=== PATIENT | female | born 1980 | race Caucasian/White ===

== ENCOUNTER 2017-09-27 18:54 | Emergency (ER) | payer OTHER, MEDICAID ==
[2017-09-27 19:56] VITALS: BP 144/86; PULSE 75; RESP 16; TEMP 98; O2SAT 100
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
--- NOTE | 2017-09-28 08:15 | RAD ---
PROCEDURE: Cervical Spine Radiographs. HISTORY: Pain. COMPARISON: None. FINDINGS: BONES: No cervical spine fracture or subluxation is identified. The odontoid and spinous processes are intact. There is anatomic alignment of the C1/2 lateral masses. DISC SPACES: Disc space heights are preserved. SOFT TISSUES: There is no prevertebral soft tissue swelling OTHER FINDINGS: Visualized portions of the lung apices are clear. IMPRESSION: No cervical spine fracture or subluxation identified.
== END 2017-09-27 21:59 | disposition home or self-care (01) ==
LOC: C.ER 18:54
DX: S13.4XXA Sprain of ligaments of cervical spine, initial encounter (principal); V49.49XA Driver injured in collision with other motor vehicles in traffic accident, initial encounter; Y92.410 Unspecified street and highway as the place of occurrence of the external cause
CPT/HCPCS: 71046; 72040; 96372; 99284; J1885

== ENCOUNTER 2017-11-08 13:48 | Emergency (ER) | payer MEDICAID, OTHER ==
--- NOTE | 2017-11-08 14:52 | C.PDOC ---
History Of Present Illness Patient presents to ED c/o swelling, mild pain and itching around left eye/ eyelid x 3-4 days. Patient is unsure if she was bit by insect or not. She denies fever, eye discharge, pain with eye movement, visual changes, headache, dizziness. Time Seen by Provider: 11/08/17 13:59 Chief Complaint (Nursing): Eye Problem History Per: Patient History/Exam Limitations: no limitations Onset/Duration Of Symptoms: Days Current Symptoms Are (Timing): Still Present Severity: Mild Quality: "Pain" Associated Symptoms: Pain, Itching. denies: Decreased Vision, FB Sensation, Discharge From Eye Past Medical History Reviewed: Historical Data, Nursing Documentation, Vital Signs Vital Signs: Last Vital Signs Temp 98.3 F 11/08/17 15:16 Pulse 62 11/08/17 15:16 Resp 18 11/08/17 15:16 BP 126/89 11/08/17 15:16 Pulse Ox 99 11/08/17 15:16 - Medical History PMH: No Chronic Diseases Family History: States: No Known Family Hx - Social History Hx Tobacco Use: Yes Hx Alcohol Use: No Hx Substance Use: No - Immunization History Hx Tetanus Toxoid Vaccination: No Hx Influenza Vaccination: No Hx Pneumococcal Vaccination: No Review Of Systems Constitutional: Negative for: Fever, Chills Eyes: Positive for: Other (mild pain and itching around left eye/eyelid) ENT: Negative for: Nose Congestion, Throat Pain Respiratory: Negative for: Cough Skin: Negative for: Rash Neurological: Negative for: Headache, Dizziness Physical Exam - Physical Exam Appears: Well, Non-toxic, No Acute Distress Skin: Other (mild left periorbital erythema and swelling ) Head: Atraumatic, Normacephalic Eye(s): bilateral: Normal Inspection, PERRL, EOMI (no pain with EOM movement ) Oral Mucosa: Moist Cardiovascular: Rhythm Regular Respiratory: Normal Breath Sounds, No Rales, No Rhonchi, No Wheezing Neurological/Psych: Oriented x3 ED Course And Treatment O2 Sat by Pulse Oximetry: 99 (RA) Pulse Ox Interpretation: Normal Progress Note: Suspect periorbital cellulitis vs allergic reaction. Patient given PO Benadryl + Clindamycin, and Rxs for same given. Patient instructed to follow up with PMD/clinic in 1-2 days, and she understands she should return to ED if symptoms worsen. Disposition Counseled Patient/Family Regarding: Diagnosis, Need For Followup, Rx Given - Disposition Referrals: Kanu Tee [Staff Provider] - [facility] [Outside] Disposition: HOME/ ROUTINE Disposition Time: 14:50 Condition: STABLE Additional Instructions: FOLLOW UP WITH YOUR DOCTOR/CLINIC IN 1-2 DAYS USE MEDICATIONS DIRECTED RETURN TO ER IF SYMPTOMS WORSEN Prescriptions: Clindamycin [Cleocin] 300 mg PO TID #21 cap DiphenhydrAMINE [Benadryl] 25 mg PO Q6 PRN #20 cap PRN Reason: Itching / Pruritus Forms: [facility] (Bulgarian) Print Language: TAJIK - Clinical Impression Clinical Impression: Periorbital cellulitis of left eye
[2017-11-08 15:18] VITALS: BP 126/89; PULSE 62; RESP 18; TEMP 98.3; O2SAT 99
== END 2017-11-08 15:18 | disposition home or self-care (01) ==
LOC: C.ER 13:48
DX: L03.213 Periorbital cellulitis (principal)

== ENCOUNTER 2018-02-03 14:27 | Emergency (ER) | payer MEDICAID ==
[2018-02-03 14:36] VITALS: RESP 18
[2018-02-03] MEDS ORDERED: Sodium Chloride 0.9% 1,000 ML IV ONE (15:09)
[2018-02-03 15:29] LABS: BASO % 0.3 % (0.0-2.0); EOS # 0.1 K/uL (0.0-0.7); HEMOGLOBIN 13.1 g/dL (11.0-16.0); LYMPH # 2.2 K/uL (1.0-4.3); LYMPH % 26.9 % (20.0-40.0); MEAN CELL VOLUME 86.6 fL (81.0-99.0); MEAN CORPUSCULAR HEMOGLOBIN 29.9 pg (27.0-31.0); MEAN CORPUSCULAR HGB CONC 34.6 g/dL (33.0-37.0); MEAN PLATELET VOLUME 7.5 fL (7.2-11.7); MONO # 0.9 K/uL (0.0-0.8); NEUT % 60.8 % (50.0-75.0); RBC 4.37 Mil/uL (3.80-5.20); WHITE BLOOD COUNT 8.2 K/uL (4.8-10.8)
--- NOTE | 2018-02-03 15:32 | C.PDOC ---
History Of Present Illness 37 year old female presents to ED complaining of nausea, vomiting, and watery diarrhea since last night. She denies fever/chills, abdominal pain, dysuria/hematuria, vaginal discharge/unusual bleeding, sick contacts, unusual food intake. Time Seen by Provider: 02/03/18 14:39 Chief Complaint (Nursing): Abdominal Pain History Per: Patient History/Exam Limitations: no limitations Onset/Duration Of Symptoms: Days (1) Current Symptoms Are (Timing): Still Present Severity: Mild Associated Symptoms: Nausea, Vomiting, Diarrhea Past Medical History Reviewed: Historical Data, Nursing Documentation, Vital Signs Vital Signs: Last Vital Signs Temp 98.6 F 02/03/18 16:41 Pulse 84 02/03/18 16:41 Resp 18 02/03/18 16:41 BP 118/78 02/03/18 16:41 Pulse Ox 99 02/03/18 16:41 - Medical History PMH: No Chronic Diseases Surgical History: No Surg Hx Family History: States: No Known Family Hx - Social History Hx Tobacco Use: Yes Hx Alcohol Use: Yes Hx Substance Use: No - Immunization History Hx Tetanus Toxoid Vaccination: No Hx Influenza Vaccination: No Hx Pneumococcal Vaccination: No Review Of Systems Constitutional: Negative for: Fever, Chills Gastrointestinal: Positive for: Nausea, Vomiting, Diarrhea (Watery). Negative for: Abdominal Pain Genitourinary: Negative for: Dysuria, Hematuria, Vaginal Discharge, Vaginal Bleeding Skin: Negative for: Rash Physical Exam - Physical Exam Appears: Well, Non-toxic, No Acute Distress Skin: Normal Color, Warm, Dry Eye(s): bilateral: Normal Inspection Oral Mucosa: Moist Neck: Supple Cardiovascular: Rhythm Regular Respiratory: Normal Breath Sounds, No Rales, No Rhonchi, No Wheezing Gastrointestinal/Abdominal: Normal Exam, Bowel Sounds, Soft, No Tenderness Back: Normal Inspection, No CVA Tenderness Neurological/Psych: Oriented x3 ED Course And Treatment - Laboratory Results Result Diagrams: 02/03/18 15:25 02/03/18 15:25 O2 Sat by Pulse Oximetry: 98 (RA) Pulse Ox Interpretation: Normal Progress Note: Blood work, UA, Upreg ordered and reviewed. Patient given IV NS bolus. Reevaluation Time: 17:30 Reassessment Condition: Improved (Patient reassessed, is resting comfortably and states she feels better. On exam, abdomen is soft and nontender/nondistended. Upreg (+), patient made aware she is . Rx for vitamins given, and patient instructed to follow up with vaudeville actor within 1 week. N/V/D symptoms likely viral in nature. Patient understands she should return to ED if symptoms worsen.) Disposition Counseled Patient/Family Regarding: Studies Performed, Diagnosis, Need For Followup, Rx Given - Disposition Referrals: [place] [facility] [Outside] [facility] [Outside] [facility] [Outside] Disposition: HOME/ ROUTINE Disposition Time: 17:30 Condition: STABLE Additional Instructions: FOLLOW UP WITH POLICY SERVICES REPRESENTATIVE WITHIN 1 WEEK USE VITAMINS TYLNEOL ONLY FOR PAIN RETURN TO ER IF YOU HAVE ANY CONCERNING SYMPTOMS DRINK PLENTY OF FLUIDS Prescriptions: 21/Iron Fu/Folic Acid [ Complete Caplet] 1 each PO DAILY #30 tablet Instructions: Symptoms Forms: [facility] (Martiniquais) Print Language: BHUTANESE - Clinical Impression Clinical Impression: Nausea, Vomiting, Diarrhea, - Scribe Statement The provider has reviewed the documentation as recorded by the Tiffany Chaconed Provider Attestation: All medical record entries made by the Tiffany were at my direction and personally dictated by me. I have reviewed the chart and agree that the record accurately reflects my personal performance of the history, physical exam, medical decision making, and the department course for this patient. I have also personally directed, reviewed, and agree with the discharge instructions and disposition.
[2018-02-03 15:36] LABS: SQUAMOUS EPITHIAL 27 /hpf (0-5); URINE BACTERIA OCC (<OCC); URINE BILIRUBIN NEGATIVE (NEGATIVE); URINE BLOOD 2+ (NEGATIVE); URINE CLARITY Hazy (Clear); URINE COLOR Amber (YELLOW); URINE GLUCOSE (UA) NORMAL (Normal); URINE LEUKOCYTE ESTERASE 3+ Leu/uL (Negative); URINE PROTEIN 3+ mg/dL (NEGATIVE); URINE UROBILINOGEN NORMAL mg/dL (0.2-1.0)
[2018-02-03 15:40] LABS: HCG,QUALITATIVE URINE POSITIVE (NEGATIVE)
[2018-02-03 15:43] LABS: ALB/GLOB RATIO 1.2 (1.0-2.1); ALBUMIN 3.4 g/dL (3.5-5.0); ALT/SGPT 22 U/L (9-52); AST/SGOT 12 U/L (14-36); BLOOD UREA NITROGEN 14 mg/dL (7-17); GFR NON-AFRICAN AMERICAN > 60; LIPASE 44 U/L (23-300)
[2018-02-03 16:42] VITALS: BP 118/78; PULSE 84; TEMP 98.6
[2018-02-14 07:30] VITALS: O2SAT 98
== END 2018-02-03 17:43 | disposition home or self-care (01) ==
LOC: C.ER 14:27
DX: O21.9 Vomiting of pregnancy, unspecified (principal); R19.7 Diarrhea, unspecified; Z3A.00 Weeks of gestation of pregnancy not specified
CPT/HCPCS: 80053; 81001; 83690; 84702; 84703; 85025; 96360; 99284; J7030

== ENCOUNTER 2018-02-14 14:25 | Emergency (ER) | payer MEDICAID ==
[2018-02-14 14:36] VITALS: RESP 16; TEMP 97.3
[2018-02-14 15:26] LABS: BASO % 0.1 % (0.0-2.0); HEMOGLOBIN 13.5 g/dL (11.0-16.0); LYMPH # 1.6 K/uL (1.0-4.3); LYMPH % 11.8 % (20.0-40.0); MEAN CELL VOLUME 86.7 fL (81.0-99.0); MEAN CORPUSCULAR HEMOGLOBIN 29.4 pg (27.0-31.0); MEAN CORPUSCULAR HGB CONC 33.9 g/dL (33.0-37.0); MEAN PLATELET VOLUME 7.8 fL (7.2-11.7); MONO # 0.6 K/uL (0.0-0.8); MONO % 4.6 % (0.0-10.0); NEUT # 11.3 K/uL (1.8-7.0); NEUT % 83.5 % (50.0-75.0); RBC 4.59 Mil/uL (3.80-5.20); RED CELL DISTRIBUTION WIDTH 14.1 % (11.5-14.5)
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
[2018-02-14 15:27] LABS: WHITE BLOOD COUNT 13.5 K/uL (4.8-10.8)
[2018-02-14 15:47] LABS: SQUAMOUS EPITHIAL 2 /hpf (0-5); URINE BACTERIA RARE (<OCC); URINE BILIRUBIN NEGATIVE (NEGATIVE); URINE BLOOD 3+ (NEGATIVE); URINE CLARITY Clear (Clear); URINE COLOR Straw (YELLOW); URINE GLUCOSE (UA) NORMAL (Normal); URINE LEUKOCYTE ESTERASE TRACE Leu/uL (Negative); URINE PROTEIN 1+ mg/dL (NEGATIVE); URINE UROBILINOGEN NORMAL mg/dL (0.2-1.0)
[2018-02-14 15:50] LABS: ALB/GLOB RATIO 1.3 (1.0-2.1); ALBUMIN 4.2 g/dL (3.5-5.0); ALT/SGPT 28 U/L (9-52); AST/SGOT 28 U/L (14-36); BLOOD UREA NITROGEN 9 mg/dL (7-17); CALCIUM 9.1 mg/dl (8.6-10.4); GFR NON-AFRICAN AMERICAN > 60
[2018-02-14 19:05] VITALS: BP 136/75; PULSE 75; O2SAT 98
--- NOTE | 2018-02-15 12:08 | US ---
Date of service: 02/14/2018 PROCEDURE: First trimester ultrasound Beta HCG 3984.80 units. HISTORY: Left-sided pain and spotting. COMPARISON: None TECHNIQUE: Standard protocol for this study/examination. FINDINGS: LMP: 01/09/2018. Prior examinations from the current : None TECHNIQUE: Real-time 2D imaging, duplex and color Doppler. FINDINGS: No pole identified. Gestational age Out of range. Below threshold for calculation of reliable gestational age. based on gestational sac measurement 0.31 cm Gestational age derived from LMP: 5 weeks 1 day MARJAN based on LMP: 10/16/2018 MARJAN based on biometry: Out of range. Below threshold for calculation of reliable gestational age. Gestational concordance cannot be established Yolk sac not identified Cervix: No Cervical abnormalities: Negative examination for cervical dilatation or effacement. Closed cervix measuring 3.28 cm Subchorionic hemorrhage: None UTERUS: 4.9 x 8.5 x 5.5 cm. Multiple (3) uterine fibroids. Septated uterus. Endometrial thickness 13 mm. Fundal sub serosal fibroid 1.6 x 2.1 cm. Fundal intramural fibroid 9 x 13 mm. Fibroid measuring 1.2 x 1 cm in the body of the uterus, intramural type. ADNEXA: Right: 2.2 x 3.7 x 5.8 cm. Simple cyst 2.2 x 3.1 x 4.1 cm. Normal Doppler arterial waveform documented. Left: 2.8 x 3.3 x 3.4 cm. Tubular structure 4 x 1.9 x 2.1 cm. Ectopic gestation should be considered. Tubo-ovarian abscess can also assume this appearance. Simple cyst 1.8 x 2.1 x 2.4 cm normal Doppler arterial waveform documented Fluid in the cul-de-sac: None IMPRESSION: Possible early intrauterine gestation based on small sac. Decidual reaction can also assume this appearance. This should be contemplated given the tubular structure in the left adnexa raise the possibility ectopic gestation. Multiple uterine fibroids. Concordant results (preliminary interpretation) provided by [facility]. Procedure Completed: 17:21. Preliminary Report: Dictated and Authenticated: 19:16. Final Interpretation: 12:06.
== END 2018-02-14 19:05 | disposition home or self-care (01) ==
LOC: C.ER 14:25
DX: O20.0 Threatened abortion (principal); Z3A.01 Less than 8 weeks gestation of pregnancy

== ENCOUNTER 2018-02-16 06:40 | Emergency (ER) | payer MEDICAID ==
[2018-02-16 07:01] VITALS: O2SAT 100
[2018-02-16] MEDS ORDERED: Sodium Chloride 0.9% 1,000 ML IV STA (07:44)
[2018-02-16 08:23] LABS: BASO # 0.1 K/uL (0.0-0.2); BASO % 0.8 % (0.0-2.0); EOS % 0.3 % (0.0-4.0); HEMOGLOBIN 13.1 g/dL (11.0-16.0); LYMPH # 1.9 K/uL (1.0-4.3); LYMPH % 19.8 % (20.0-40.0); MEAN CELL VOLUME 86.8 fL (81.0-99.0); MEAN CORPUSCULAR HGB CONC 34.5 g/dL (33.0-37.0); MEAN PLATELET VOLUME 7.7 fL (7.2-11.7); MONO # 0.7 K/uL (0.0-0.8); MONO % 6.9 % (0.0-10.0); NEUT # 6.9 K/uL (1.8-7.0); NEUT % 72.2 % (50.0-75.0); RBC 4.36 Mil/uL (3.80-5.20); RED CELL DISTRIBUTION WIDTH 14.1 % (11.5-14.5); WHITE BLOOD COUNT 9.6 K/uL (4.8-10.8)
[2018-02-16 08:27] LABS: URINE BILIRUBIN NEGATIVE (NEGATIVE); URINE BLOOD 3+ (NEGATIVE); URINE COLOR Straw (YELLOW); URINE GLUCOSE (UA) NORMAL (Normal); URINE PROTEIN 1+ mg/dL (NEGATIVE); URINE UROBILINOGEN NORMAL mg/dL (0.2-1.0)
[2018-02-16 08:28] LABS: SQUAMOUS EPITHIAL 4 /hpf (0-5); URINE BACTERIA RARE (<OCC); URINE LEUKOCYTE ESTERASE NEG Leu/uL (Negative)
[2018-02-16 08:29] LABS: HCG,QUALITATIVE URINE POSITIVE (NEGATIVE)
[2018-02-16 08:39] LABS: ALB/GLOB RATIO 1.4 (1.0-2.1); ALT/SGPT 26 U/L (9-52); AST/SGOT 16 U/L (14-36); BLOOD UREA NITROGEN 9 mg/dL (7-17); GFR NON-AFRICAN AMERICAN > 60
[2018-02-16 08:54] LABS: URINE CLARITY SLHAZY (Clear)
--- NOTE | 2018-02-16 10:24 | US ---
Date of service: 02/16/2018 HISTORY: , vaginal bleeding. Last menstrual period is 01/09/2018 suggesting an estimated gestational age of 8 weeks 3 days. COMPARISON: None available. TECHNIQUE: Transvaginal pelvic ultrasound was performed with longitudinal and transverse images submitted for interpretation. FINDINGS: UTERUS: Measures 8.8 x 5.1 x 6.1 cm. Heterogeneous echotexture seen throughout the myometrium with multiple small fibroids identified. A mid left lateral subserosal fibroid measures 1.5 x 1.1 x 1.2 cm. A high fundal, subserosal posterior uterine myoma measures 2.0 x 1.5 x 1.8 cm with both of these fibroids hypoechoic in echotexture predominantly. A 3rd fibroid is identified at the mid posterior fundus mural in position measure 1.5 x 1.0 x 1.3 cm. A small cystic structure seen within the endometrium or the endometrial cavity measuring 0.3 cm average diameter suggesting an estimated gestational age of less than 5 weeks if this is a gestational sac. Clearly, no pole yolk sac is identifiable. ENDOMETRIUM: Measures 13.9 mm in diameter. Inhomogeneous echotexture diffusely noted. See discussion above. CERVIX: No cervical abnormality identified. RIGHT OVARY: Measures 2.7 x 1.7 x 3.2 cm. No solid mass. Normal flow. Parapelvic cysts identified simple in character measuring 4.1 x 2.4 x 3.2 cm. LEFT OVARY: Measures 4.1 x 2.9 x 3.7 cm. No solid mass. Normal flow. A 2.2 x 1.7 x 1.9 cm complex cyst is seen with a prominent peripheral rind which appears echogenic. This may represent a corpus luteum cyst. FREE FLUID: No significant free fluid noted. OTHER FINDINGS: Ectopic gestation not demonstrated but is not completely excluded either. IMPRESSION: Potential early intrauterine gestation in the endometrial cavity. No yolk sac or pole yet proven. Possible corpus luteum cyst left ovary. No ectopic gestation clearly identified however this is not excluded and clinical correlation is recommended including serial beta HCG analysis and possible week follow-up transvaginal pelvic ultrasound. Three uterine fibroids identified as discussed above. Prominent endometrium.
[2018-02-16 11:29] VITALS: BP 123/79; PULSE 88; RESP 16; TEMP 98.4
--- NOTE | 2018-02-16 11:32 | C.PDOC ---
Time Seen by Provider: 02/16/18 07:15 Chief Complaint (Nursing): Female Genitourinary Past Medical History Vital Signs: Last Vital Signs Temp 98.4 F 02/16/18 11:28 Pulse 88 02/16/18 11:28 Resp 16 02/16/18 11:28 BP 123/79 02/16/18 11:28 Pulse Ox 100 02/16/18 11:28 - Medical History PMH: Anxiety - Social History Hx Tobacco Use: Yes Hx Alcohol Use: No Hx Substance Use: No - Immunization History Hx Tetanus Toxoid Vaccination: No Hx Influenza Vaccination: No Hx Pneumococcal Vaccination: No ED Course And Treatment - Laboratory Results Result Diagrams: 02/16/18 08:15 02/16/18 08:15 O2 Sat by Pulse Oximetry: 100 Disposition - Disposition Referrals: Jacqueline Rodrigues APN [Primary Care Provider] - Disposition: HOME/ ROUTINE Disposition Time: 11:29 Condition: STABLE Additional Instructions: Follow up with OBGYN within 1-2 days. Return to ED in 2-3 days to repeat blood work and pelvic US. Return to ED immediately if feel worse. Instructions: Bleeding With (DC) - Clinical Impression Clinical Impression: Vaginal bleeding in patient at less than 20 weeks gestation
--- NOTE | 2018-02-16 11:35 | C.PDOC ---
History Of Present Illness 37 y/o female, 5 weeks , , presents to ED for evaluation of vaginal spotting that started yesterday. Pt states she noticed blood when wiping today. Denies abdominal pain, n/v/d, constipation, back pain, fever, or chills. LMP: 01/09/18. Time Seen by Provider: 02/16/18 07:15 Chief Complaint (Nursing): Female Genitourinary History Per: Patient History/Exam Limitations: no limitations Onset/Duration Of Symptoms: Days Current Symptoms Are (Timing): Still Present Alleviating Factors: None Recent travel outside of the [place]: No Additional History Per: Patient Last Menstral Period: 01/09/18 : 1 Para: 0 Past Medical History Reviewed: Historical Data, Nursing Documentation, Vital Signs Vital Signs: Last Vital Signs Temp 98.4 F 02/16/18 11:28 Pulse 88 02/16/18 11:28 Resp 16 02/16/18 11:28 BP 123/79 02/16/18 11:28 Pulse Ox 100 02/16/18 11:28 - Medical History PMH: Anxiety Family History: States: Unknown Family Hx - Social History Hx Tobacco Use: Yes Hx Alcohol Use: No Hx Substance Use: No - Immunization History Hx Tetanus Toxoid Vaccination: No Hx Influenza Vaccination: No Hx Pneumococcal Vaccination: No Review Of Systems Except As Marked, All Systems Reviewed And Found Negative. Constitutional: Negative for: Fever, Chills Gastrointestinal: Negative for: Nausea, Vomiting, Abdominal Pain, Diarrhea, Constipation Genitourinary: Positive for: Vaginal Bleeding (spotting). Negative for: Dysuria, Frequency Musculoskeletal: Negative for: Back Pain Neurological: Negative for: Headache, Dizziness Physical Exam - Physical Exam Appears: Non-toxic, No Acute Distress Skin: Normal Color, Warm, Dry Head: Atraumatic, Normacephalic Eye(s): bilateral: Normal Inspection Oral Mucosa: Moist Neck: Normal ROM, Supple Cardiovascular: Rhythm Regular, No Murmur Respiratory: Normal Breath Sounds, No Rales, No Rhonchi, No Wheezing Gastrointestinal/Abdominal: Soft, No Tenderness, No Guarding, No Rebound Back: No CVA Tenderness Extremity: Normal ROM Neurological/Psych: Oriented x3, Normal Speech ED Course And Treatment - Laboratory Results Result Diagrams: 02/16/18 08:15 02/16/18 08:15 O2 Sat by Pulse Oximetry: 100 (RA) Pulse Ox Interpretation: Normal - CT Scan/US OB transvag US Other Rad Studies (CT/US): Read By Radiologist, Radiology Report Reviewed CT/US Interpretation: Accession No. : [id number]. Patient Name / ID : YUNIOR COX / [id number]. Exam Date : 02/16/2018 09:18:09 ( Approved ). Study Comment : Sex / Age : F / [id number]. Creator : Cam Arevalo MD. Dictator : Cam Arevalo MD. Residential Builder : Block Press Operator : Cam Arevalo MD. Approver2 : Report Date : 02/16/2018 10:23:18. My Comment : . Date of service: 02/16/2018. HISTORY: , vaginal bleeding. Last menstrual period is 01/09/2018 suggesting an estimated gestational age of 8 weeks 3 days. COMPARISON: None available. TECHNIQUE: Transvaginal pelvic ultrasound was performed with longitudinal and transverse images submitted for interpretation. FINDINGS: UTERUS: Measures 8.8 x 5.1 x 6.1 cm. Heterogeneous echotexture seen throughout the myometrium with multiple small fibroids identified. A mid left lateral subserosal fibroid measures 1.5 x 1.1 x 1.2 cm. A high fundal, subserosal posterior uterine myoma measures 2.0 x 1.5 x 1.8 cm with both of these fibroids hypoechoic in echotexture predominantly. A 3rd fibroid is identified at the mid posterior fundus mural in position measure 1.5 x 1.0 x 1.3 cm. A small cystic structure seen within the endometrium or the endometrial cavity measuring 0.3 cm average diameter suggesting an estimated gestational age of less than 5 weeks if this is a gestational sac. Clearly, no pole yolk sac is identifiable. ENDOMETRIUM: Measures 13.9 mm in diameter. Inhomogeneous echotexture diffusely noted. See discussion above. CERVIX: No cervical abnormality identified. RIGHT OVARY: Measures 2.7 x 1.7 x 3.2 cm. No solid mass. Normal flow. Parapelvic cysts identified simple in character measuring 4.1 x 2.4 x 3.2 cm. LEFT OVARY: Measures 4.1 x 2.9 x 3.7 cm. No solid mass. Normal flow. A 2.2 x 1.7 x 1.9 cm complex cyst is seen with a prominent peripheral rind which appears echogenic. This may represent a corpus luteum cyst. FREE FLUID: No significant free fluid noted. OTHER FINDINGS: Ectopic gestation not demonstrated but is not completely excluded either. IMPRESSION: Potential ea rly intrauterine gestation in the endometrial cavity. No yolk sac or pole yet proven. Possible corpus luteum cyst left ovary. No ectopic gestation clearly identified however this is not excluded and clinical correlation is recommended including serial beta HCG analysis and possible week follow-up transvaginal pelvic ultrasound. Three uterine fibroids identified as discussed above. Prominent endometrium. Medical Decision Making Medical Decision Making: Plan: Blood work Urinalysis OB transvag US IV fluids Pt is being discharged home with instructions to return to ED in 2-3 days for repeat Beta HCG and ultrasound. Disposition - Disposition Referrals: Jacqueline Rodrigues APN [Primary Care Provider] - Disposition: HOME/ ROUTINE Disposition Time: 11:36 Condition: STABLE Additional Instructions: Follow up with OBGYN within 1-2 days. Return to ED in 2-3 days to repeat blood w ork and pelvic US. Return to ED immediately if feel worse. Instructions: Bleeding With (DC) Forms: [employer] (Surinamese) - Clinical Impression Clinical Impression: Vaginal bleeding in patient at less than 20 weeks gestation - PA / REVIEW MANAGER / Resident Statement MD/DO has reviewed & agrees with the documentation as recorded. - Scribe Statement The provider has reviewed the documentation as recorded by the Scribe JOCELYN All medical record entries made by the Scribe were at my direction and personally dictated by me. I have reviewed the chart and agree that the record accurately reflects my personal performance of the history, physical exam, medical decision making, and the department course for this patient. I have also personally directed, reviewed, and agree with the discharge instructions and disposition.
== END 2018-02-16 11:48 | disposition home or self-care (01) ==
LOC: SUPCPDRO 06:40 → C.ER 06:40
DX: O46.91 Antepartum hemorrhage, unspecified, first trimester (principal); Z3A.00 Weeks of gestation of pregnancy not specified
CPT/HCPCS: 76817; 80053; 81001; 84702; 84703; 85025; 86850; 86900; 96360; 99285; J1644; J7030

== ENCOUNTER 2018-09-25 13:31 | Emergency (ER) | payer MEDICAID, OTHER ==
[2018-09-25 13:52] VITALS: TEMP 98
--- NOTE | 2018-09-25 14:11 | C.PDOC ---
History Of Present Illness 37 year old female presents to ED with complaint of right ear pain for the past week. Patient also complains of bilateral groin rash for the past day with +itching. Patient denies fever, discharge, or tingling. R EAR PAIN X 1 WEEK. NO FEVER, DC, OTHER ASSOC SX ALSO CO B/L GROIN RASH X 1 DAY. +ITCH. EXAM NAD HEENT +IMPACTED WAX R EAR; CANAL WNL. L TM WNL SKIN +JOCK ITCH B/L INNER THIGH Time Seen by Provider: 09/25/18 13:56 Chief Complaint (Nursing): ENT Problem History Per: Patient History/Exam Limitations: no limitations Onset/Duration Of Symptoms: Days (7) Current Symptoms Are (Timing): Still Present Past Medical History Reviewed: Historical Data, Nursing Documentation, Vital Signs Vital Signs: Last Vital Signs Temp 98.0 F 09/25/18 13:49 Pulse 74 09/25/18 13:49 Resp 20 09/25/18 13:49 BP 153/93 H 09/25/18 13:49 Pulse Ox 100 09/25/18 13:49 Primary Care Provider: Manpreet Duarte Surg - Medical History PMH: Anxiety Surgical History: No Surg Hx Family History: States: Unknown Family Hx - Social History Hx Tobacco Use: Yes Hx Alcohol Use: No Hx Substance Use: No - Immunization History Hx Tetanus Toxoid Vaccination: No Hx Influenza Vaccination: No Hx Pneumococcal Vaccination: No Review Of Systems Except As Marked, All Systems Reviewed And Found Negative. ENT: Positive for: Ear Pain (right ear pain ) Skin: Positive for: Rash (pruritic bilateral groin rash) Physical Exam - Physical Exam Appears: Well, Non-toxic, No Acute Distress Skin: Normal Color, Warm, Dry, Other (+jock itch to the bilateral inner thigh) Head: Atraumatic, Normacephalic Eye(s): bilateral: Normal Inspection, PERRL, EOMI Ear(s): Left: Normal, Right: Other (impacted wax, canal within normal limits) Nose: Normal Oral Mucosa: Moist Throat: Normal, No Erythema, No Exudate Neck: Normal ROM, Supple Chest: Symmetrical, No Deformity Cardiovascular: Rhythm Regular, No Murmur Respiratory: No Accessory Muscle Use, No Rales, No Rhonchi, No Wheezing, Other (NARD) Gastrointestinal/Abdominal: Soft, No Tenderness Extremity: Normal ROM, Capillary Refill (<2 seconds) Extremity: Bilateral: Atraumatic, Normal ROM Pulses: Left Radial: Normal, Right Radial: Normal Neurological/Psych: Oriented x3, Normal Speech, Normal Cognition ED Course And Treatment O2 Sat by Pulse Oximetry: 100 (in RA) Pulse Ox Interpretation: Normal Medical Decision Making Medical Decision Making: MDM Patient prescribed debrox and lotrimin cream Discussed plan with patient who expresses understanding. All questions answered and there is agreement with the plan to discharge home with instructions. Patient stable for discharge. Return if symptoms persist or worsen. Disposition Counseled Patient/Family Regarding: Diagnosis, Need For Followup, Rx Given - Disposition Referrals: [facility] [Outside] [facility] [Outside] Disposition: HOME/ ROUTINE Disposition Time: 14:22 Condition: GOOD Prescriptions: Carbamide Peroxide [Debrox 15 Ml] 1 bot OT DAILY #1 bottle Clotrimazole 1% Cream [Lotrimin 1% CREAM] 1 applic TOP BID #1 tube Instructions: Ear Wax Impaction (DC), Jock Itch (DC) Forms: [facility] ([place]), Work Excuse - Clinical Impression Clinical Impression: Impacted cerumen, Tinea corporis - Scribe Statement The provider has reviewed the documentation as recorded by the Scribe (Sarah Pritchard) All medical record entries made by the Scribe were at my direction and personally dictated by me. I have reviewed the chart and agree that the record accurately reflects my personal performance of the history, physical exam, medical decision making, and the department course for this patient. I have also personally directed, reviewed, and agree with the discharge instructions and disposition.
[2018-09-25 14:26] VITALS: BP 144/90; PULSE 66; RESP 18
[2018-09-25 15:33] VITALS: O2SAT 100
== END 2018-09-25 14:43 | disposition home or self-care (01) ==
LOC: C.ER 13:31
DX: H61.21 Impacted cerumen, right ear (principal); B35.4 Tinea corporis